=== PATIENT | male | born 1970 | race Caucasian/White ===

== ENCOUNTER 2020-10-30 15:02 | Outpatient (REF) | payer BC, SELFPAY ==
--- NOTE | 2020-10-30 15:23 | XR_ITS ---
EXAMINATION: XR CHEST CLINICAL INFORMATION: Chest pain COMPARISON: None TECHNIQUE: 2 views of the chest were obtained. FINDINGS: No significant abnormality is noted involving the heart, lungs, mediastinum, bony thorax or soft tissues. XR/XR chest 2V IMPRESSION: Unremarkable examination.
[2020-10-30 15:48] LABS: MANUAL DIFF FLAG NO
[2020-10-30 15:54] LABS: Basophils Absolute Auto 0.1 X10*3/uL (0.0-0.2); Basophils Percent Auto 0.7 % (0-2); Eosinophils Absolute Auto 0.1 X10*3/uL (0.0-0.4); Eosinophils Percent Auto 1.7 % (0-4); Imm Gran Abs Auto 0.02 X10*3/uL (0.00-0.03); Imm Gran Pct Auto 0.3 % (0.0-0.4); Lymphocytes Absolute Auto 1.6 X10*3/uL (1.2-4.9); Lymphocytes Percent Auto 22.9 % (20-40); Mean Corpuscular HGB Conc 33.3 g/dl (31.0-36.0); Mean Corpuscular Hemoglobin 30.9 pg (27.0-33.0); Mean Corpuscular Volume 92.6 fL (80-98); Mean Platelet Volume 9.6 fL (9.4-12.4); Monocytes Absolute Auto 0.7 X10*3/uL (0.1-1.2); Monocytes Percent Auto 9.7 % (2-11); Neutrophils Absolute Auto 4.5 X10*3/uL (2.0-8.3); Neutrophils Percent Auto 64.7 % (45-73); Platelet Count 261 X10*3/uL (160-400); Red Blood Count 4.86 X10*6/uL (4.60-5.80); Red Cell Distribution Width 11.6 % (11.0-16.0); White Blood Count 6.9 X10*3/uL (4.8-10.8)
[2020-10-30 16:23] LABS: Troponin-I High Sensitivity < 3.5 ng/L (<3.5-35.0)
[2020-10-30 16:32] LABS: Creatinine Urine 89.67 mg/dL; Microalbum/Creatinine Ratio Ur 7.8 ug/mg cr
[2020-10-30 16:40] LABS: Alanine Aminotransferase 47 U/L (0-40); Albumin Level 4.8 g/dL (3.5-5.0); Alkaline Phosphatase 59 U/L (39-117); Anion Gap 12 (12-20); Aspartate Amino Transferase 31 U/L (5-37); Bilirubin Total 0.7 mg/dL (0.0-1.0); Blood Urea Nitrogen 16 mg/dL (9-16); Calcium 9.2 mg/dL (8.4-10.2); Carbon Dioxide 29 mmol/L (22-29); Chloride 104 mmol/L (96-108); Estimated Glomerular Filt Rate > 60; Glucose Random 100 mg/dL (60-115); Potassium 4.3 mmol/l (3.3-5.1); Sodium 141 mmol/L (135-145); Total Protein 7.3 g/dL (6.5-8.0)
[2020-10-30 16:42] LABS: TSH reflex Free T4 1.88 mIU/mL (0.32-4.0)
== END 2020-10-30 15:03 | disposition home or self-care (01) ==
LOC: HO.LAB 15:02
PROVIDERS: PCP Family Medicine; Visit Provider Family Medicine
DX: Z00.00 Encounter for general adult medical examination without abnormal findings (principal); R07.9 Chest pain, unspecified; I10 Essential (primary) hypertension
CPT/HCPCS: 36415; 71046; 80053; 82043; 84443; 84484; 85025

== ENCOUNTER → 2020-12-11 14:30 | Outpatient (BNVA) | payer BC, SELFPAY | PROVIDERS: PCP Family Medicine; Visit Provider Internal Medicine Cardiovascular Disease ==

== ENCOUNTER → 2020-12-18 09:53 | Outpatient (BNVA) | payer BC, SELFPAY | PROVIDERS: PCP Family Medicine; Visit Provider Internal Medicine Cardiovascular Disease ==

== ENCOUNTER → 2020-12-25 07:40 | Outpatient (REF) | payer BC, SELFPAY ==
--- NOTE | 2020-12-25 07:46 | CA_ITS ---
Transthoracic Echocardiogram Patient (Last, First, Middle): Gus Joaquin, Gender: Male Date of : 1970 Age: 50 Procedure Date: 12/25/2020 Procedure Type: Transthoracic Echocardiogram Location: OP Height: 165.1 cm Weight: 63.5 kg BSA: 1.70 m2 Heart Rate: bpm BP: 132 / 76 mmHg Picking Machine Operator: SANDOVAL Referring MD: Mauri Adams MD Symptoms: I10 - Essential (primary) hypertension Study Quality: Good ECG Rhythm: Sinus Conclusions: - The left ventricular systolic function is normal. The visually estimated ejection fraction is between 55-60%. - No obvious valvular pathology seen on this study. - Interatrial shunt cannot be excluded. Interatrial septum is not well visualized but likely highly mobile. Possible aneurysmal. - If clinically indicated, consider agitated saline contrast study to evaluate for interatrial shunting. Findings Left Ventricle Normal left ventricular cavity size. There is normal left ventricular wall thickness. The left ventricular systolic function is normal. The visually estimated ejection fraction is between 55-60%. There is no evidence of regional wall motion abnormalities. Diastolic function is normal for age. Right Ventricle Normal right ventricular cavity size and systolic function. Atria The left atrium is normal in size. Interatrial shunt cannot be excluded. The right atrium is normal in size. Interatrial septum is not well visualized but likely highly mobile. Possible aneurysmal. Aortic Valve There is a normal trileaflet aortic valve. There is no aortic valve stenosis. There is no aortic valve regurgitation. Mitral Valve The mitral valve appears normal. There is trace mitral valve regurgitation. There is no mitral valve stenosis. Pulmonic Valve The pulmonic valve was not well visualized. Tricuspid Valve Normal tricuspid valve structure. There is trace tricuspid valve regurgitation. The pulmonary artery systolic pressure is normal. Great Vessels The aortic annulus, sinuses of valsalva, asc aorta, and aortic arch are normal in size. Venous The inferior vena cava is normal in size and collapses greater than 50% with inspiration. Pericardium/Pleural There is no evidence of pericardial effusion. Prior Study Comparison No prior study available for comparison. Recommendations, Care & Conclusions No obvious valvular pathology seen on this study. Measurements 2D Linear Measurements IVSd: 0.99 0.6-0.9/0.6-1.0 cm LVIDd: 4.04 3.9-5.3/4.2-5.9 cm LVIDd Index: 2.38 2.4-3.2/2.2-3.1 cm/m2 LVIDs: 2.60 2.0-3.6 cm LVPWd: 0.89 0.7-1.1 cm Ao Root: 2.90 2.1-3.5 cm LA Diam: 3.30 2.7-3.8/3.0-4.0 cm LAIDs Index: 1.94 1.5-2.3 cm/m2 LV Mass: 146.76 67-162/88-224 g LV Mass Index: 86.33 43-95/49-115 g/m2 LVOT Diam: 2.10 3.0+(-)1.3 cm 2D Systolic Function EF 4C: 55.60 >55% EF 2C: 60.60 >55% EF BiP: 58.40 >55% Mitral Valve MV Pk E: 1.07 MV PK A: 0.68 MV Decel Time: 236.00 E/A: 1.60 E'Lateral: 12.30 E'Medial: 8.49 E/E' Med: 12.60 E/E' Lat: 8.70 PHT: 69.00 MVA PHT: 3.19 Decel [place]: 4.51 Aortic Valve AoV Pk Tyson: 1.29 AoV Mn Tyson: 0.87 AoV VTI: 0.29 AoV Pk Grad: 7.00 Aov Mn Grad: 3.00 JUSTINE Cont.VTI: 2.99 LVOT LVOT Pk Tyson: 1.15 LVOT Mn Tyson: 0.71 LVOT VTI: 0.25 LVOT Pk Grad: 5.00 LVOT Mn Grad: 2.00 LVOT Diam: 2.10 LVOT Area: 3.46 Diastolic Function MV Pk E: 1.07 MV Pk A: 0.68 E/A: 1.60 E'Medial: 8.49 E/E' Med: 12.60 E' Laterial: 12.30 E/E' Lat: 8.70 Tricuspid Valve TR Pk Tyson: 1.68 TR Pk Grad: 11.00 RA Press: 3.00 RVSP: 14.00 Great Vessels Aorta Ao Root-2D: 2.90 2.0-3.7 cm Ao Asc: 3.00 2.1-3.4 cm Ao Arch: 2.30 Updated in Other Vendor System with Status of Final Lemuel Garcia MD electronically signed on 12/25/2020 11:29:26 AM with status of Final
== END ==
LOC: HO.CARD 07:40
PROVIDERS: Visit Provider Internal Medicine Cardiovascular Disease
DX: I10 Essential (primary) hypertension (principal)
CPT/HCPCS: 93306

== ENCOUNTER → 2021-02-26 09:51 | Outpatient (BNVA) | payer BC, SELFPAY | PROVIDERS: PCP Family Medicine; Visit Provider Internal Medicine Cardiovascular Disease ==

== ENCOUNTER 2021-03-29 08:07 | Outpatient (REF) | payer BC, SELFPAY ==
[2021-03-29 11:43] LABS: Alanine Aminotransferase 45 U/L (0-40); Albumin Level 4.7 g/dL (3.5-5.0); Alkaline Phosphatase 54 U/L (39-117); Anion Gap 13 (12-20); Aspartate Amino Transferase 31 U/L (5-37); Bilirubin Total 0.9 mg/dL (0.0-1.0); Blood Urea Nitrogen 15 mg/dL (9-16); Calcium 9.5 mg/dL (8.4-10.2); Carbon Dioxide 29 mmol/L (22-29); Chloride 105 mmol/L (96-108); Cholesterol 221 mg/dL; Estimated Glomerular Filt Rate > 60; Glucose Fasting 117 mg/dL (60-99); HDL Cholesterol 81 mg/dL; LDL Cholesterol Calculated 107 mg/dl; Potassium 4.5 mmol/L (3.3-5.1); Sodium 142 mmol/L (135-145); Total Protein 7.3 g/dL (6.5-8.0); Triglycerides 166 mg/dL
[2021-03-29 12:06] LABS: TSH reflex Free T4 2.14 uIU/mL (0.32-4.0)
== END 2021-03-29 08:08 | disposition home or self-care (01) ==
LOC: HO.WFDLDS 08:07
PROVIDERS: Visit Provider Family Medicine
DX: Z00.00 Encounter for general adult medical examination without abnormal findings (principal)
CPT/HCPCS: 36415; 80053; 80061; 84443

== ENCOUNTER 2021-05-10 11:26 | Outpatient (REF) | payer BC, SELFPAY | END 2021-05-10 11:27 | disposition home or self-care (01) | LOC: HO.LNP 11:26 | PROVIDERS: Visit Provider Physician Assistant | DX: J02.9 Acute pharyngitis, unspecified (principal); Z20.822 Contact with and (suspected) exposure to COVID-19 | CPT/HCPCS: U0003; U0005 ==

== ENCOUNTER → 2021-06-04 14:42 | Outpatient (BNVA) | payer BC, SELFPAY | PROVIDERS: PCP Family Medicine; Referring Provider Family Medicine; Visit Provider Internal Medicine Cardiovascular Disease | DX: I10 Essential (primary) hypertension (principal) | CPT/HCPCS: 93005 ==

== ENCOUNTER → 2021-10-01 11:17 | Outpatient (BNVA) | payer BC, SELFPAY | PROVIDERS: PCP Family Medicine; Referring Provider Family Medicine; Visit Provider Nurse Practitioner Family ==

== ENCOUNTER 2022-02-08 08:46 | Day surgery (SDC) | payer BC, SELFPAY ==
--- NOTE | 2022-02-07 12:28 | HO.ANESPROP2 ---
Documented by User: Luzma Cleary NP 02/07/22 12:30 HPI - Anesthesia Eval Consult details Narrative: 52yo M for Colonoscopy Optimized per cardiology ETOH abuse PMFSH Active Problems Active Problems: All Active Problems (Updated 06/26/21 @ 09:40 by Aidan Peoples) Alcohol abuse (Acute) Depression (Acute) Screening for prostate cancer (Acute) History of alcohol abuse (Acute) Screening for colon cancer (Acute) Adult general medical exam (Acute) Anxiety (Acute) Left-sided chest pain (Acute) Laboratory examination ordered as part of a routine general medical examination (Acute) Essential hypertension (Acute) Past Medical History Medical History Essential hypertension Trigger finger, right index finger Family History Family History Father No problems noted. Mother No problems noted. Sister No problems noted. Daughter No problems noted. Surgical History Surgical History S/P tendon repair Social History Social History Housing: House Alcohol intake: current Alcohol intake frequency: 3 or more drinks per day Alcohol type: beer, wine and hard liquor Patient Tobacco Use Status: Never used Tobacco e-Cigarette/Vaping Use: Never Used Second Hand Smoke Exposure: No Advance Directives: No Advance Directives Information Provided: Yes Current occupational status: employed Current occupational exposures/hazards: No Meds Allergies Allergy/AdvReac Type Severity Reaction Status Date / Time Sulfa (Sulfonamide Allergy Mild unknown Verified 12/24/21 09:48 Antibiotics) penicillin G Allergy Unknown unknown Verified 12/24/21 09:48 Home Medications Medication Instructions Recorded Confirmed Last Taken Type flu vac [id number] 36mos up(PF) ml IM 11/06/20 06/04/21 Unknown History Exam Exam Date and Time: February 07, 2022 1228 Pertinent Lab Results Pertinent Lab Results: Laboratory Tests 10/30/20 03/29/21 15:15 08:13 WBC 6.9 Hgb 15.0 Hct 45.0 Plt Count 261 Sodium 142 Potassium 4.5 Chloride 105 Carbon Dioxide 29 BUN 15 Creatinine 0.80 Narrative Narrative: EKG 05/2021 NSR 69/min, normal axis, QTc 413 msec ECHO 12/2020 Conclusions: - The left ventricular systolic function is normal.? The visually estimated ejection fraction is between 55-60%. ? - No obvious valvular pathology seen on this study.? - Interatrial shunt cannot be excluded. Interatrial septum is not well visualized but likely highly mobile.? Possible aneurysmal.? - If clinically indicated, consider agitated saline contrast ? ? study to evaluate for interatrial shunting.? ?? Assessment and Plan Assessment Anesthesia Assessment: Chart Reviewed Documented by User: Zohra Wagnoer MD 02/08/22 09:21 [facility] Past Medical History Medical History Essential hypertension Trigger finger, right index finger Family History Family History Father No problems noted. Mother No problems noted. Sister No problems noted. Daughter No problems noted. Family history of problems with anesthesia: No Surgical History Surgical History S/P tendon repair History of Problems with Anesthesia: No Social History Social History Housing: House Alcohol intake: current Alcohol intake frequency: 3 or more drinks per day Alcohol type: beer, wine and hard liquor Patient Tobacco Use Status: Never used Tobacco e-Cigarette/Vaping Use: Never Used Second Hand Smoke Exposure: No Advance Directives: No Advance Directives Information Provided: Yes Current occupational status: employed Current occupational exposures/hazards: No Meds Allergies Allergy/AdvReac Type Severity Reaction Status Date / Time Sulfa (Sulfonamide Allergy Mild unknown Verified 12/24/21 09:48 Antibiotics) penicillin G Allergy Unknown unknown Verified 12/24/21 09:48 Home Medications Medication Instructions Recorded Confirmed Last Taken Type flu vac [id number] 36mos up(PF) ml IM 11/06/20 06/04/21 Unknown History Exam Airway Mallampati Class: III (Small narrow mouth) TM Dist: >3cm Neck ROM: Full Heart: rrr Lungs: cta Assessment and Plan Assessment Anesthesia Assessment: Anesthesia Plan Discussed and Chart Reviewed Final Anesthetic Review Family History of Problems with Anesthesia: No History of Problems with Anesthesia: No NPO: Yes ASA Class: II Final Preanesthetic Review: No Changes in Pt Med Stat, Meds/Allgs Chart Reviewed and Consent Obtained/Reviewed Patient Risk: Intermediate Procedure Risk: Intermediate Anesthetic Plan Anesthetic Plan: MAC: Disposition: Standard PACU
[2022-02-08 09:12] VITALS: BP 151/89; PULSE 53; RESP 18; TEMP 36.9; O2SAT 98; BMI 24.6
--- NOTE | 2022-02-08 09:24 | MHC.SHP ---
Pre-Procedural Eval Section A Date of Service: 02/08/22 Section B Chief Complaint: abd pain,screening Details of Present Illness: Colon cancer screening Relevant Family History (Specify if Yes): No Relevant Social History: None Present Medications: see Short Stay Collaborative assessment Medical History: Significant History (Essential hypertension Trigger finger, right index finger) History of Previous Operations: Relevant previous surgery/procedure and date(s) (S/P tendon repair) Allergies: Allergies Allergy/AdvReac Type Severity Reaction Status Date / Time Sulfa (Sulfonamide Allergy Mild unknown Verified 12/24/21 09:48 Antibiotics) penicillin G Allergy Unknown unknown Verified 12/24/21 09:48 Review of Systems Sugical H&P ROS: Negative: Constitution, Cardiovascular, Respiratory and Gastrointestinal Exam Surgical H&P Exam: Normal: Heart, Normal: Lungs, Normal: Extremities and Normal: Abdomen Plan Diagnosis/Plan: Unchanged I have reviewed the history and physical and performed a pertinent physical examination on my patient. No changes have occurred unless specified.
[2022-02-08] MEDS: Lactated Ringers 1,000 ML 100 ML IVCONT (09:57)
--- NOTE | 2022-02-08 10:16 | P.BOP_ITS ---
Brief Operative Note Date of Service: 02/08/22 Pre-op diagnosis: Colon cancer screening Post-op diagnosis: other (Colon polyp, diverticulosis, hemorrhoids) Procedure: COLONOSCOPY TILL CECUM WITH SNARE POLYPECTOMY AND SUBMUCOSAL INJECTION Consent: Indications for the procedure and potential complications of bleeding, perforation, reaction to medications and missed diagnosis were discussed with the patient and informed consent was obtained. Instrument: Olympus PCF H 190 L variable stiffness pediatric colonoscope Monitoring: Vital signs and clinical assessment, intermittent blood pressure monitoring, continuous EKG monitoring, Pulse oximetry and Carbon Dioxide monitoring were done throughout the procedure. Colon withdrawl time was 21 minutes. Procedure: The patient was placed in the left lateral decubitis position and pre-procedure medications were administered. After a digital rectal examination of the ano-rectum, the video colonoscope was inserted into the rectum and advanced through the colon to the cecum. The colonoscope was slowly withdrawn in a retrograde panoramic fashion and the colon mucosa was carefully examined including a retroflexed view of the rectum. Findings and interventions are described below. Procedure Difficulty: Without difficulty Findings: Terminal Ileum: Not evaluated Cecum: Normal Ascending Colon: A 1.8 cms flat polyp in proximal AC at 80 cms. Polyp was raised with 3 cc of Orise solution and removed with a hot snare. Hysterectomy site was marked with Ting ink Transverse Colon: Normal Descending Colon: Normal Sigmoid Colon: Moderate diverticulosis Rectum: Normal Ano-rectum: Moderate internal hemorrhoids Colon preparation: Good Impression and Post Procedure Diagnosis: Colonoscopy Findings: One medium sized polyp removed Moderate diverticulosis seen in the sigmoid colon Moderate hemorrhoids on retroflexed exam. Plan: Await pathology results Patient has an appointment on 02/18/22 in the GI Clinic with Alethea Decker FNP- JESSICA . Repeat Colonoscopy interval based on path results - in 2 years if polyps are adenomatous and 10 years if polyps are hyperplastic. Colon polyps and diverticulosis handouts were given in the discharge area Surgeon: Thor Hung MD Anesthesia: MAC (Dr Salomon) and none Was an Loading Unit Operator Seating used for this Procedure?: Yes Loading Unit Operator Seating: Yaneth Guadarrama Estimated blood loss (mL): 0 Pathology: other (A. ASCENDING COLON POLYP at 80CM) Condition: stable Disposition: PACU
[2022-02-08 10:48] VITALS: BP 107/65; PULSE 58; RESP 16; TEMP 36.4; O2SAT 97
--- NOTE | 2022-02-08 10:49 | W.PM.OPN ---
Operative Note Operative Note Date of Service: 02/08/22 Narrative: Pre-op diagnosis: Colon cancer screening Post-op diagnosis:?other (Colon polyp, diverticulosis, hemorrhoids) Procedure: COLONOSCOPY TILL CECUM WITH SNARE POLYPECTOMY AND SUBMUCOSAL INJECTION Consent: Indications for the procedure and potential complications of bleeding, perforation, reaction to medications and missed diagnosis were discussed with the patient and informed consent was obtained. Instrument: Olympus PCF H 190 L variable stiffness pediatric colonoscope Monitoring: Vital signs and clinical assessment, intermittent blood pressure monitoring, continuous EKG monitoring, Pulse oximetry and Carbon Dioxide monitoring were done throughout the procedure. Colon withdrawl time was 21 minutes. Procedure: The patient was placed in the left lateral decubitis position and pre-procedure medications were administered. After a digital rectal examination of the ano-rectum, the video colonoscope was inserted into the rectum and advanced through the colon to the cecum. The colonoscope was slowly withdrawn in a retrograde panoramic fashion and the colon mucosa was carefully examined including a retroflexed view of the rectum. Findings and interventions are described below. Procedure Difficulty: Without difficulty Findings: Terminal Ileum: Not evaluated Cecum:? Normal Ascending Colon:? A 1.8 cms flat polyp in proximal AC at 80 cms.? Polyp was raised with 3 cc of Orise solution and removed with a hot snare.? Hysterectomy site was marked with Ting ink Transverse Colon:? Normal Descending Colon:? Normal Sigmoid Colon:? Moderate diverticulosis Rectum:? Normal Ano-rectum:? Moderate internal hemorrhoids Colon preparation:? Good? Impression and Post Procedure Diagnosis: Colonoscopy Findings: One medium sized polyp removed Moderate diverticulosis seen in the sigmoid colon Moderate hemorrhoids on retroflexed exam. Plan: Await pathology results Patient has an appointment on 02/18/22 in the GI Clinic with Alethea Decker FNP- . Repeat Colonoscopy interval based on path results - in 2 years if polyps are adenomatous and 10 years if polyps are hyperplastic. Colon polyps and diverticulosis handouts were given in the discharge area Surgeon: Thor Hung MD Anesthesia:?MAC (Dr Salomon) and none Was an Funeral Prearrangement Counselor used for this Procedure?:?Yes Funeral Prearrangement Counselor:?Yaneth Guadarrama Estimated blood loss (mL):?0 Pathology:?other (A. ASCENDING COLON POLYP at 80CM) Condition:?stable Disposition:?PACU
[2022-02-08 11:03] VITALS: BP 120/72; PULSE 50; RESP 16; O2SAT 99
[2022-02-08 11:16] VITALS: BP 120/73; PULSE 53; RESP 16; TEMP 36.4; O2SAT 100
== END 2022-02-08 12:25 | disposition home or self-care (01) ==
PROVIDERS: PCP Family Medicine; Visit Provider Internal Medicine Gastroenterology
PROC: 0DJD8ZZ Inspection of Lower Intestinal Tract, Via Natural or Artificial Opening Endoscopic (ICD-10-PCS; CPT 45378; principal; 2022-02-08 10:10)
DX: Z12.11 Encounter for screening for malignant neoplasm of colon (principal); R10.9 Unspecified abdominal pain; K57.30 Diverticulosis of large intestine without perforation or abscess without bleeding; K64.8 Other hemorrhoids; I10 Essential (primary) hypertension; F10.10 Alcohol abuse, uncomplicated; Z79.899 Other long term (current) drug therapy; Z88.0 Allergy status to penicillin; Z88.2 Allergy status to sulfonamides
CPT/HCPCS: 45385; 45381; 88305

== ENCOUNTER 2022-07-01 07:02 | Outpatient (REF) | payer BC, SELFPAY ==
[2022-07-01 11:18] LABS: MANUAL DIFF FLAG NO
[2022-07-01 11:36] LABS: Hematocrit 45.1 % (42.0-52.0); Hemoglobin 15.1 g/dl (14.0-18.0); Mean Corpuscular HGB Conc 33.5 g/dl (31.0-36.0); Mean Corpuscular Hemoglobin 30.4 pg (27.0-33.0); Mean Corpuscular Volume 90.9 fL (80.0-98.0); Red Blood Count 4.96 X10*6/uL (4.60-5.80); Red Cell Distribution Width 11.9 % (11.0-16.0); White Blood Count 5.5 X10*3/uL (4.8-10.8)
[2022-07-01 11:37] LABS: Basophils Absolute Auto 0.1 X10*3/uL (0.0-0.2); Basophils Percent Auto 1.3 % (0-2); Eosinophils Absolute Auto 0.5 X10*3/uL (0.0-0.4); Eosinophils Percent Auto 9.1 % (0-4); Imm Gran Abs Auto 0.02 X10*3/uL (0.00-0.03); Imm Gran Pct Auto 0.4 % (0.0-0.4); Lymphocytes Absolute Auto 2.1 X10*3/uL (1.2-4.9); Lymphocytes Percent Auto 38.7 % (20-40); Monocytes Absolute Auto 0.5 X10*3/uL (0.1-1.2); Monocytes Percent Auto 9.1 % (2-11); Neutrophils Absolute Auto 2.3 x10*3/uL (2.0-8.3); Neutrophils Percent Auto 41.4 % (45-73); Platelet Count 257 X10*3/uL (160-400)
[2022-07-01 11:58] LABS: Alanine Aminotransferase 27 U/L (0-40); Albumin Level 4.5 g/dL (3.5-5.0); Alkaline Phosphatase 55 U/L (39-117); Anion Gap 14 (12-20); Aspartate Amino Transferase 21 U/L (5-37); Bilirubin Total 0.9 mg/dL (0.0-1.0); Blood Urea Nitrogen 12 mg/dL (9-16); Carbon Dioxide 28 mmol/L (22-29); Chloride 106 mmol/L (96-108); Cholesterol 215 mg/dL; Estimated Glomerular Filt Rate > 60; Glucose Fasting 135 mg/dL (60-99); HDL Cholesterol 77 mg/dL; LDL Cholesterol Calculated 125 mg/dl; Potassium 4.6 mmol/L (3.3-5.1); Sodium 143 mmol/L (135-145); Triglycerides 69 mg/dL
[2022-07-01 12:47] LABS: Creatinine Urine 105.19 mg/dL; Microalbum/Creatinine Ratio Ur 5.7 ug/mg cr
== END 2022-07-01 07:03 | disposition home or self-care (01) ==
LOC: HO.WFDLDS 07:02
PROVIDERS: Visit Provider Family Medicine
DX: Z00.00 Encounter for general adult medical examination without abnormal findings (principal); I10 Essential (primary) hypertension
CPT/HCPCS: 36415; 80053; 80061; 82043; 84443; 85025

== ENCOUNTER 2022-09-09 09:35 | Outpatient (REF) | payer BC, SELFPAY ==
[2022-09-09 12:37] LABS: Prostate Specific Antigen Scr 0.99 ng/mL (<0.05-4.0)
== END 2022-09-09 09:36 | disposition home or self-care (01) ==
LOC: HO.WFDLDS 09:35
PROVIDERS: Visit Provider Family Medicine
DX: Z12.5 Encounter for screening for malignant neoplasm of prostate (principal)
CPT/HCPCS: 36415; 84153

== ENCOUNTER 2023-07-28 08:51 | Outpatient (AMB) | payer BC, SELFPAY ==
[2023-07-28 09:03] VITALS: BP 130/66; PULSE 71; O2SAT 97; BMI 24.3
--- NOTE | 2023-07-28 09:03 | MHC.PC.OV ---
Vital Signs 07/28/23 09:03 Height 5 ft 5 in Weight 146 lb BMI 24.3 BP 130/66 Blood Pressure Location Lt brachial Position Sitting Pulse 71 Pulse Source Pulse Oximeter Pulse Oximetry (%) 97 Oxygen Delivery Method Room Air Intake Visit Reasons: CPE with f/u labs and health maintenance Intake Note: Patient is here for his physical, and and is cocerned of rash on right leg. Allergies Sulfa (Sulfonamide Antibiotics) Allergy (Mild, Verified 07/28/23 09:06) unknown penicillin G Allergy (Unknown, Verified 07/28/23 09:06) unknown Tobacco use date assessed: 07/28/23 Dental Screening Dental Screen Date: 07/28/23 Did you have a dental visit in the last 12 months?: Yes Did you have a dental problem in the last 6 months where you did not have access to dental care?: No Was dental information given to patient?: Patient has dentist HPI CPE with f/u labs and health maintenance HPI Details 53 y/o male presents for a CPE with f/u labs and health maintenance. No recent labs to review. BP today 130/66. He is on amlodipine 5mg b.i.d. and carvedilol 6.25mg b.i.d. Pt has complaints of a rash on his thighs. Pt reports he had also found a tick on his back less than a week ago on . Today is Friday. [facility] Medical History Essential hypertension Trigger finger, right index finger Surgical History Hx of colonoscopy S/P tendon repair Family History Father No problems noted. Mother No problems noted. Sister No problems noted. Daughter No problems noted. 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 Percy Lombardi, Jenniffer Capps, Omar Cunningham and colleagues, with an educational dana from [email or web address]. Review of Systems Const Denies chills, Denies fatigue, Denies fever(s), Denies headache(s) and Denies weakness Eyes Denies change in vision ENT Denies dizziness, Denies headache(s), Denies hearing loss, Denies nasal congestion, Denies sinus pain, Denies sinus pressure and Denies sore throat Card Denies chest pain, Denies lightheadedness, Denies dyspnea and Denies other (palpitations) Resp Denies cough, Denies dyspnea and Denies wheezing GI Denies abdominal pain, Denies melena, Denies hematochezia, Denies change in bowel habits, Denies dyspepsia and Denies nausea Denies hematuria and Denies dysuria Musc Denies abnormal gait, Denies myalgias, Denies arthralgias, Denies numbness and Denies tingling Skin/Breast Reports rash Neuro Denies abnormal gait, Denies dizziness, Denies headache(s), Denies memory loss, Denies numbness, Denies Sensory deficit (Neuro), Denies tingling and Denies weakness Psych Denies anxiety, Denies depression and Denies memory loss Endo Denies cold intolerance, Denies fatigue, Denies heat intolerance, Denies polydipsia and Denies polyuria Lit/Lymph Denies easy bleeding and Denies easy bruising Aller/Immun Denies wheezing Physical exam (Primary Care) Vital Signs: Last Vital Signs Pulse 71 07/28/23 09:03 BP 130/66 07/28/23 09:03 Pulse Ox 97 07/28/23 09:03 Oxygen Delivery Method Room Air 07/28/23 09:03 BMI result Body Mass Index 24.3 Tobacco/Smoking Status: Tobacco use Status Tobacco use date assessed 07/28/23 07/28/23 09:08 Patient Tobacco Use Status Never used Tobacco 07/28/23 09:08 e-Cigarette/Vaping Use Never Used 07/28/23 09:08 Thrive Assessment: Date of Thrive Assessment Date Thrive assessed 01/23/23 07/28/23 09:08 Const General: no acute distress, well developed, alert and awake Nutritional Appearance: well nourished Orientation/consciousness: patient oriented x3 HENMT Head: Yes normocephalic and Yes atraumatic Ears: hearing grossly normal bilaterally and TM's normal bilaterally General nose exam: Normal external nose present and Normal nares present Mouth: Normal oral and palatal mucosa present and moist mucous membranes Teeth and gingiva: dentition normal Throat: Yes posterior oropharynx normal Eyes General: appearance normal, both eyes and all related structures Pupils: Equal, round and reactive pupils present and Pupil accommodation reflex normal EOM: EOMs intact bilaterally Neck Neck: Yes normal visual inspection, Yes no lymphadenopathy and Yes trachea midline Thyroid: Thyroid normal Carotids: no bruits Lymphatic: no lymphadenopathy noted Chest Chest palpation & inspection: normal inspection of the chest Resp Effort & Inspection: normal respiratory effort Auscultation: clear to auscultation bilaterally Cardio Rate: regular rate Rhythm: regular rhythm Heart sounds: S1 normal heart sound present, S2 normal heart sound present, no gallops, no murmurs and no rubs Bruits: no abdominal aortic bruits and no carotid bruits GI Palpation (GI): No Abdominal aortic bruit present, Soft to palpation, nontender, No hepatosplenomegaly present and No Rebound tenderness present Auscultation: normal bowel sounds General: Yes no CVA tenderness Back/Spine/Pelvis Back: no CVA tenderness Cervical Spine: cervical ROM normal and No Cervical spine tenderness Thoracic/Lumbar Spine: thoraco-lumbar ROM normal, No pain with thoraco-lumbar ROM, No thoracic spinal tenderness and No lumbar spinal tenderness Skin Lesions: no lesions Rashes: no rashes Trauma: no lacerations or abrasions Wounds: no wounds Nails: normal Neuro General: patient oriented x3 Cranial nerves: Yes Equal, round and reactive pupils present Cognition (Neuro): normal cognition Gait exam (Neuro): Normal gait present Motor exam (neuro): 5/5 motor strength present throughout Sensory Exam: No Sensory deficit (Neuro) Deep tendon reflexes (DTR's): Right patellar reflex intensity grade: 2+ and Left patellar reflex intensity grade: 2+ Extrem General: Yes normal to inspection and No edema Psych Appearance: grossly normal Affect: normal affect Attitude: cooperative Thought process: Normal thought process present Assessment and Plan Assessment & Plan (1) Adult general medical exam: Code(s): Z00.00 - Encounter for general adult medical examination without abnormal findings Plan: 53-year-old?male?presents?for?complete?physical?exam Encouraged?healthy?diet?with?active?lifestyle?and?plenty?of?exercise (2) Tick bite: Code(s): W57.XXXA - Bitten or stung by nonvenomous insect and other nonvenomous arthropods, initial encounter Plan: Tick?bite?with?local?reaction?on?his?back. No?erythema?migrans?rash Patient?is?uncertain?how?long?tick?was?attached?though?it?is?no?longer?attached. Will?give?him?a?prophylactic?dose?of?doxycycline?and?check?Lyme?titers?in?1?week. (3) Rash: Code(s): R21 - Rash and other nonspecific skin eruption Plan: Half?dollar?sized?rash?on?right?lateral?thigh Appears?to?be?a?contact?dermatitis?and?not?similar?to?an?erythema?migrans?rash. (4) Essential hypertension: Code(s): I10 - Essential (primary) hypertension Plan: Blood?pressure?is?controlled.??Goal?is?less?than?140/90 Continue?current?medication?regimen (5) Screening for colon cancer: Code(s): Z12.11 - Encounter for screening for malignant neoplasm of colon Plan: Recent?colonoscopy?showed?a?polyp?and?recommended?follow-up?which?he?is?scheduled?for?next?spring Follow-up?with?GI?as?recommended (6) Screening for prostate cancer: Code(s): Z12.5 - Encounter for screening for malignant neoplasm of prostate Plan: Check?PSA Orders: Orders Lipid Panel Today Z00.00 - Encounter for general adult medical examination without abnormal findings Microalbumin, Random (w Creat) Today I10 - Essential (primary) hypertension UA and rflx microscopic Today Z00.00 - Encounter for general adult medical examination without abnormal findings Lyme IgG/IgM w/reflex to WB Today W57.XXXA - Bitten or stung by nonvenomous insect and other nonvenomous arthropods, initial encounter Comprehensive [place]. Panel Fast Today Z00.00 - Encounter for general adult medical examination without abnormal findings TSH reflex Free T4 Today Z00.00 - Encounter for general adult medical examination without abnormal findings Prostate Specific Antigen Scr Today Z12.5 - Encounter for screening for malignant neoplasm of prostate Medications: New doxycycline hyclate 200 mg (2 x 100 mg) PO ONCE 1 day 2 caps 0RF W57.XXXA - Bitten or stung by nonvenomous insect and other nonvenomous arthropods, initial encounter Coding Level of Care Code Est Pt Level 3 (36135) Est Pt Prev Care 40-64y(87453) Diagnoses Adult general medical exam Z00.00 Tick bite W57.XXXA Rash R21 Essential hypertension I10 Screening for colon cancer Z12.11 Screening for prostate cancer Z12.5
== END 2023-07-28 09:53 | disposition home or self-care (01) ==
PROVIDERS: PCP Family Medicine; Visit Provider Family Medicine
DX: Z00.00 Encounter for general adult medical examination without abnormal findings (principal); T63.481A Toxic effect of venom of other arthropod, accidental (unintentional), initial encounter; R21 Rash and other nonspecific skin eruption; I10 Essential (primary) hypertension
CPT/HCPCS: 99213; 99396

== ENCOUNTER 2023-07-29 07:04 | Outpatient (REF) | payer BC, SELFPAY ==
[2023-07-29 11:25] LABS: Appearance Urine Clear; Color Urine Yellow; Glucose Urine UA Negative (Negative); Leukocyte Esterase Urine Negative (Negative); Nitrite Urine Negative (Negative); PH 7.5 (5.0-9.0); Specific Gravity - Urine 1.015 (1.005-1.025); Urine Blood Negative (Negative); Urine Ketones Negative (Negative); Urine Protein Negative (Neg-Trace)
[2023-07-29 11:52] LABS: Alanine Aminotransferase 28 U/L (0-40); Albumin Level 4.5 g/dL (3.5-5.0); Alkaline Phosphatase 56 U/L (39-117); Anion Gap 13 (12-20); Aspartate Amino Transferase 22 U/L (5-37); Bilirubin Total 0.8 mg/dL (0.0-1.0); Blood Urea Nitrogen 13 mg/dL (9-16); Calcium 9.7 mg/dL (8.4-10.2); Carbon Dioxide 27 mmol/L (22-29); Chloride 106 mmol/L (96-108); Cholesterol 216 mg/dL (<200); Estimated Glomerular Filt Rate > 60; Glucose Fasting 130 mg/dL (60-99); HDL Cholesterol 79 mg/dL (>40); LDL Cholesterol Calculated 113 mg/dL (<100); Potassium 4.3 mmol/L (3.3-5.1); Sodium 142 mmol/L (135-145); Total Protein 7.6 g/dL (6.5-8.0); Triglycerides 122 mg/dL (<150)
[2023-07-29 12:04] LABS: Prostate Specific Antigen Scr 0.73 ng/mL (<0.05-4.0)
[2023-07-29 12:15] LABS: TSH reflex Free T4 3.44 uIU/mL (0.32-4.0)
[2023-07-29 12:49] LABS: Microalbum/Creatinine Ratio Ur 16.2 ug/mg cr (<30)
[2023-08-01 18:39] LABS: Lyme Abs Screen <0.90 index
== END 2023-07-29 07:05 | disposition home or self-care (01) ==
LOC: HO.WFDLDS 07:04
PROVIDERS: Visit Provider Family Medicine
DX: Z00.00 Encounter for general adult medical examination without abnormal findings (principal); Z12.5 Encounter for screening for malignant neoplasm of prostate; T14.8XXA Other injury of unspecified body region, initial encounter; W57.XXXA Bitten or stung by nonvenomous insect and other nonvenomous arthropods, initial encounter; I10 Essential (primary) hypertension
CPT/HCPCS: 36415; 80053; 80061; 81003; 82043; 82570; 84153; 84443; 86617; 86618

== ENCOUNTER 2024-03-15 06:57 | Day surgery (SDC) | payer BC, SELFPAY ==
[2024-03-15 07:43] VITALS: BP 168/96; PULSE 62; RESP 16; TEMP 36.3; O2SAT 99; BMI 23.5
[2024-03-15] MEDS: Lactated Ringers 1,000 ML 100 ML IVCONT (07:55)
--- NOTE | 2024-03-15 08:35 | MHC.SHP ---
Pre-Procedural Eval Section A - 24 Hr Update-Section A only Date of Service: 03/15/24 The patient is an INPATIENT: No The patient has been examined within 24 hours of the surgical procedure. The History & Physical has been completed within 30 days and I have reviewed it.: No Section B - Complete if H&P > 30 days Chief Complaint: Surveillance for colon polyps Relevant Family History (Specify if Yes): No Relevant Social History: None Present Medications: see Short Stay Collaborative assessment Medical History: Significant History (Essential hypertension Trigger finger, right index finger) History of Previous Operations: Relevant previous surgery/procedure and date(s) (Hx of colonoscopy S/P tendon repair) Allergies: Allergies Allergy/AdvReac Type Severity Reaction Status Date / Time Sulfa (Sulfonamide Allergy Mild unknown Verified 10/27/23 13:44 Antibiotics) penicillin G Allergy Unknown unknown Verified 10/27/23 13:44 Review of Systems Sugical H&P ROS: Negative: Constitution, Cardiovascular, Respiratory and Gastrointestinal Exam Surgical H&P Exam: Normal: Heart, Normal: Lungs, Normal: Extremities and Normal: Abdomen Plan Diagnosis/Plan: Unchanged I have reviewed the history and physical and performed a pertinent physical examination on my patient. No changes have occurred unless specified. Time Spent With Patient Time: Total time managing care of this patient today ____ minutes.
--- NOTE | 2024-03-15 09:23 | P.CONAN_ITS ---
[facility] Active Problems Active Problems: All Active Problems Tick bite (Acute) Rash (Acute) Dermatitis (Acute) Paresthesia of hand, bilateral (Acute) Abdominal pain (Acute) Elevated fasting glucose (Acute) Alcohol abuse (Acute) Depression (Acute) Screening for prostate cancer (Acute) History of alcohol abuse (Acute) Screening for colon cancer (Acute) Adult general medical exam (Acute) Anxiety (Acute) Left-sided chest pain (Acute) Laboratory examination ordered as part of a routine general medical examination (Acute) Essential hypertension (Acute) Past Medical History Medical History (Updated 03/11/24 @ 10:05 by Sammie Cronin RN) Alcohol abuse Essential hypertension Family History Family History Father No problems noted. Mother No problems noted. Sister No problems noted. Daughter No problems noted. Family history of problems with anesthesia: No Surgical History Surgical History Hx of colonoscopy S/P tendon repair History of Problems with Anesthesia: No Social History Social History Housing: House Alcohol intake: current Alcohol intake frequency: 3 or more drinks per day Alcohol type: beer, wine and hard liquor Patient Tobacco Use Status: Never used Tobacco e-Cigarette/Vaping Use: Never Used Second Hand Smoke Exposure: No Use of substances other than those prescribed or required for medical reasons: No Are you DNR?: No Advance Directives: No Advance Directives Information Provided: Yes service: No Current occupational status: employed 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 Current occupational exposures/hazards: No Cognitive needs: No Hearing needs: No Vision needs: No Meds Allergies Allergy/AdvReac Type Severity Reaction Status Date / Time Sulfa (Sulfonamide Allergy Mild unknown Verified 10/27/23 13:44 Antibiotics) penicillin G Allergy Unknown unknown Verified 10/27/23 13:44 Active Medications: Current Medications Lactated Ringer's (Lr) 1,000 mls @ 100 mls/hr IVCONT .Q10H XAVIER Last Admin: 03/15/24 07:55 Dose: 100 mls/hr Exam Height,Weight and Vital Signs: Height 5 ft 5 in Weight 64.047 kg Last Vital Signs Temp 97.3 F 03/15/24 07:43 Pulse 62 06/10/24 07:43 Resp 16 03/15/24 07:43 BP 168/96 H 03/15/24 07:43 Pulse Ox 99 03/15/24 07:43 O2 Del Method Room Air 03/15/24 07:43 Airway Mallampati Class: II TM Dist: >3cm Neck ROM: Full Heart: rrr Lungs: cta Assessment and Plan Assessment Anesthesia Assessment: Anesthesia Plan Discussed and Chart Reviewed Final Anesthetic Review Family History of Problems with Anesthesia: No History of Problems with Anesthesia: No NPO: Yes ASA Class: II Final Preanesthetic Review: No Changes in Pt Med Stat, Meds/Allgs Chart Reviewed and Consent Obtained/Reviewed Patient Risk: Low Procedure Risk: Low Anesthetic Plan Anesthetic Plan: MAC: Disposition: Standard PACU
--- NOTE | 2024-03-15 09:58 | HO.OPN-COLON ---
Colonoscopy Operative Note Operative Note Date of Service: 03/15/24 Narrative: COLONOSCOPY TILL CECUM WITH SNARE POLYPECTOMY Pre-op diagnosis: Surveillance for colon polyps. Post-op diagnosis:? Colon polyp, Diverticulosis, hemorrhoids Endoscopist:? Thor Hung MD Anesthesia:?MAC Consent: Indications for the procedure and potential complications of bleeding, perforation, reaction to medications and missed diagnosis were discussed with the patient and informed consent was obtained. Instrument: Olympus PCF H 190 L variable stiffness pediatric colonoscope Monitoring: Vital signs and clinical assessment, intermittent blood pressure monitoring, continuous EKG monitoring, Pulse oximetry and Carbon Dioxide monitoring were done throughout the procedure. Please see anesthesia flowsheet. Colon withdrawl time was 12 minutes. Procedure: The patient was placed in the left lateral decubitis position and pre-procedure medications were administered. After a digital rectal examination of the ano-rectum, the video colonoscope was inserted into the rectum and advanced through the colon to the cecum. The colonoscope was slowly withdrawn in a retrograde panoramic fashion and the colon mucosa was carefully examined including a retroflexed view of the rectum. Findings and interventions are described below. Procedure Difficulty: without difficulty Findings: Terminal Ileum: Not evaluated Cecum: Normal Ascending Colon: Polypectomy site visualized at 80 cms and no residual/recurrent polyp noted Moderate scattered diverticulosis Transverse Colon: Normal Descending Colon: Normal Sigmoid Colon: A 3-4 mm diminutive appearing polyp - removed with a cold snare. Moderate diverticulosis Rectum: Normal Ano-rectum: Large non-bleeding internal hemorrhoids Colon preparation: Good after some irrigation. [place] Bowel Preparation Scale Right colon; 2 Transverse colon: 2 Left colon; 3 (0 = Unprepared colon segment with mucosa not seen due to solid stool that cannot be cleared. 1 = Portion of mucosa of the colon segment seen, but other areas of the colon segment not well seen due to staining, residual stool and/or opaque liquid. 2 = Minor amount of residual staining, small fragments of stool and/or opaque liquid, but mucosa of colon segment seen well. 3 = Entire mucosa of colon segment seen well with no residual staining, small fragments of stool or opaque liquid) Impression and Post Procedure Diagnosis: Colonoscopy Findings: One small polyp was removed Moderate diverticulosis seen in the sigmoid and right colon Large hemorrhoids on retroflexed exam. Plan: I will send a letter with pathology results Repeat Colonoscopy in 5 years if polyp is adenomatous and due to a history of adenomatous colon polyps. Above findings were reviewed with the patient and relevant handouts were given and the discharge area.
[2024-03-15 09:59] VITALS: BP 109/74; PULSE 59; RESP 16; TEMP 36.1; O2SAT 98
[2024-03-15 10:14] VITALS: BP 135/85; PULSE 53; RESP 16; TEMP 36.1; O2SAT 100
== END 2024-03-15 10:56 | disposition home or self-care (01) ==
PROVIDERS: PCP Family Medicine; Visit Provider Internal Medicine Gastroenterology
PROC: 0DJD8ZZ Inspection of Lower Intestinal Tract, Via Natural or Artificial Opening Endoscopic (ICD-10-PCS; CPT 45378; principal; 2024-03-15 09:20)
DX: Z12.11 Encounter for screening for malignant neoplasm of colon (principal); K63.5 Polyp of colon; K57.30 Diverticulosis of large intestine without perforation or abscess without bleeding; K64.8 Other hemorrhoids; Z86.010 Personal history of colon polyps; I10 Essential (primary) hypertension
CPT/HCPCS: 45385; 88305; J2704

== ENCOUNTER → 2024-03-15 06:57 | Outpatient (BNV) | payer BC, SELFPAY | PROVIDERS: PCP Family Medicine; Visit Provider Internal Medicine Gastroenterology | DX: Z12.11 Encounter for screening for malignant neoplasm of colon (principal); Z86.010 Personal history of colon polyps; K63.5 Polyp of colon; K57.90 Diverticulosis of intestine, part unspecified, without perforation or abscess without bleeding; K64.8 Other hemorrhoids | CPT/HCPCS: 45385 ==

== ENCOUNTER 2024-03-29 14:30 | Outpatient (AMB) | payer BC, SELFPAY ==
[2024-03-29 14:35] VITALS: BP 132/72; PULSE 71; O2SAT 97; BMI 23.8
--- NOTE | 2024-03-29 14:35 | A.OFFPC_ITS ---
Vital Signs 03/29/24 14:35 Height 5 ft 5 in Weight 143 lb BMI 23.8 BP 132/72 Blood Pressure Location Lt brachial Position Sitting Pulse 71 Pulse Source Pulse Oximeter Pulse Oximetry (%) 97 Oxygen Delivery Method Room Air Intake Visit Reasons: f/u hypertension and elevated fbs Intake Note: Patient is here for follow up on hypertension and fasting blood sugars Allergies Sulfa (Sulfonamide Antibiotics) Allergy (Mild, Verified 03/29/24 14:39) unknown penicillin G Allergy (Unknown, Verified 03/29/24 14:39) unknown Medication List - Last Reconciled 03/29/24 by Claudio Sigala MD amlodipine 5 mg PO BID 90 days carvedilol 6.25 mg PO BID 90 days triamcinolone acetonide 0.1% 1 appl topical BID 7 days Tobacco use date assessed: 10/27/23 Dental Screening Dental Screen Date: 03/29/24 Did you have a dental visit in the last 12 months?: Yes Did you have a dental problem in the last 6 months where you did not have access to dental care?: No Was dental information given to patient?: Patient has dentist HPI f/u hypertension and elevated fbs HPI Details 54 y/o male presents to f/u hypertension and elevated fasting blood sugars. Blood pressure today 132/72. He is on amlodipine 5mg b.i.d, carvedilol 6.25mg b.i.d. A1c today 03/29/24 5.6%. Pt notes he had a recent colonoscopy about a week ago. HPI Comments History of Present Illness Details Documentation assistance for Claudio Sigala MD, was provided by Aidan Peoples, Data Manager on 03/29/2024 at 3:00 PM EST. I, Dr. Sigala, have read, observed, and verified documentation. [facility] Medical History (Updated 03/11/24 @ 10:05 by Sammie Cronin RN) Alcohol abuse Essential hypertension Surgical History Hx of colonoscopy S/P tendon repair Family History Father No problems noted. Mother No problems noted. Sister No problems noted. Daughter No problems noted. 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 Percy Lombardi, Jenniffer Capps, Omar Cunningham and colleagues, with an educational dana from [employer]. Review of Systems Const Denies chills, Denies fatigue, Denies fever(s), Denies headache(s) and Denies weakness ENT Denies dizziness and Denies headache(s) Card Denies dyspnea Resp Denies cough, Denies dyspnea, Denies wheezing and Denies other (shortness of breath) Musc Denies numbness and Denies tingling Neuro Denies dizziness, Denies headache(s), Denies numbness, Denies tingling and Denies weakness Psych Denies anxiety and Denies depression Endo Denies fatigue Aller/Immun Denies wheezing Physical exam (Primary Care) Vital Signs: Last Vital Signs Pulse 71 03/29/24 14:35 BP 132/72 03/29/24 14:35 Pulse Ox 97 03/29/24 14:35 Oxygen Delivery Method Room Air 03/29/24 14:35 BMI result Body Mass Index 23.8 Tobacco/Smoking Status: Tobacco use Status Tobacco use date assessed 10/27/23 03/29/24 14:36 Patient Tobacco Use Status Never used Tobacco 03/29/24 14:36 e-Cigarette/Vaping Use Never Used 03/29/24 14:36 Thrive Assessment: Date of Thrive Assessment Date Thrive assessed 01/23/23 03/29/24 14:36 Const General: well developed; No acute distress Nutritional Appearance: well nourished Orientation/consciousness: patient oriented x3 HENMT Head: Yes normocephalic and Yes atraumatic Eyes General: appearance normal, both eyes and all related structures Pupils: Equal, round and reactive pupils present EOM: EOMs intact bilaterally Resp Effort & Inspection: normal respiratory effort Neuro General: patient oriented x3 and gait normal Cranial nerves: Yes Equal, round and reactive pupils present Psych Affect: normal affect Results AMB Hemoglobin A1c AMB Hemoglobin A1c 5.6 % Last Edit by Christine Rushing CMA on 03/29/24 14:54 Results Reviewed Results Reviewed: Laboratory Last Values Hgb A1c (Clinic) 5.6 % (4.0-6.0) 03/29/24 14:50 Assessment and Plan Assessment & Plan (1) Essential hypertension: Code(s): I10 - Essential (primary) hypertension Plan: Blood?pressure?is?controlled.??Goal?is?less?than?140/90 Continue?current?medications (2) Elevated fasting glucose: Code(s): R73.01 - Impaired fasting glucose Plan: A1c?5.6%;?top?normal?range Encouraged?a?diet?lower?in?sugars?and?starches Encouraged?weight?control?and?exercise (3) Screening for colon cancer: Code(s): Z12.11 - Encounter for screening for malignant neoplasm of colon Plan: Recent?colonoscopy?with?hyperplastic?polyp?and?he?was?told?to?follow- up?in?5?years Follow-up?with?GI?as?recommended Orders: Orders AMB Hemoglobin A1c Today Z13.9 - Encounter for screening, unspecified Comprehensive [place]. Panel Fast Today Z00.00 - Encounter for general adult medical examination without abnormal findings Lipid Panel Today Z00.00 - Encounter for general adult medical examination without abnormal findings UA and rflx microscopic Today Z00.00 - Encounter for general adult medical examination without abnormal findings Microalbumin, Random (w Creat) Today I10 - Essential (primary) hypertension Prostate Specific Antigen Scr Today Z12.5 - Encounter for screening for malignant neoplasm of prostate TSH reflex Free T4 Today Z00.00 - Encounter for general adult medical examination without abnormal findings Medications: Refilled amlodipine 5 mg PO BID 90 days 180 tabs 3RF carvedilol 6.25 mg PO BID 90 days 180 tabs 3RF Coding Level of Care Code Est Pt Level 3 (13331) Diagnoses Essential hypertension I10 Elevated fasting glucose R73.01 Screening for colon cancer Z12.11
== END 2024-03-29 15:13 | disposition home or self-care (01) ==
PROVIDERS: PCP Family Medicine; Visit Provider Family Medicine
DX: I10 Essential (primary) hypertension (principal); R73.01 Impaired fasting glucose; Z12.11 Encounter for screening for malignant neoplasm of colon
CPT/HCPCS: 83036; 99213

== ENCOUNTER 2024-07-12 08:06 | Outpatient (REF) | payer BC, SELFPAY ==
[2024-07-12 11:26] LABS: Appearance Urine Clear; Color Urine Yellow; Glucose Urine UA Negative (Negative); Leukocyte Esterase Urine Negative (Negative); Nitrite Urine Negative (Negative); Specific Gravity - Urine 1.025 (1.005-1.025); Urine Blood Negative (Negative); Urine Ketones Negative (Negative); Urine Protein Negative (Neg-Trace)
[2024-07-12 11:59] LABS: Creatinine Urine 140.27 mg/dL; Microalbum/Creatinine Ratio Ur 4.9 ug/mg cr (<30)
[2024-07-12 12:04] LABS: Alanine Aminotransferase 25 U/L (0-40); Albumin Level 4.6 g/dL (3.5-5.0); Alkaline Phosphatase 51 U/L (39-117); Anion Gap 13 (12-20); Aspartate Amino Transferase 22 U/L (5-37); Blood Urea Nitrogen 15 mg/dL (9-16); Calcium 9.8 mg/dL (8.4-10.2); Carbon Dioxide 28 mmol/L (22-29); Chloride 106 mmol/L (96-108); Estimated Glomerular Filt Rate > 60; Glucose Fasting 116 mg/dL (60-99); Potassium 4.2 mmol/L (3.3-5.1); Sodium 143 mmol/L (135-145); TSH reflex Free T4 2.41 uIU/mL (0.32-4.0); Total Protein 7.6 g/dL (6.5-8.0)
[2024-07-12 12:19] LABS: Prostate Specific Antigen Scr 1.55 ng/mL (<0.05-4.0)
== END 2024-07-12 08:07 | disposition home or self-care (01) ==
LOC: HO.WFDLDS 08:06
PROVIDERS: Visit Provider Family Medicine
DX: Z00.00 Encounter for general adult medical examination without abnormal findings (principal); I10 Essential (primary) hypertension; Z12.5 Encounter for screening for malignant neoplasm of prostate
CPT/HCPCS: 36415; 80053; 81003; 82043; 82570; 84153; 84443

== ENCOUNTER 2025-01-06 15:49 | Outpatient (AMB) | payer BC, SELFPAY ==
--- NOTE | 2025-01-06 16:04 | MHC.PC.OV ---
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 He reports symptoms x5 weeks. Blood pressure today 130/78, 78p. He is on amlodipine 5mg b.i.d, carvedilol 6.25mg b.i.d. Hx of elevated fasting glucose. A1c today 5.5%. He notes he keeps working on decreasing EtOH use. [facility] Medical History (Updated 01/06/25 @ 16:52 by Aidan Peoples) Alcohol abuse Essential hypertension Surgical History Hx of colonoscopy S/P tendon repair Family History Father No problems noted. Mother No problems noted. Sister No problems noted. Daughter No problems noted. 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 1. Little interest or pleasure in doing things: not at all 2. Feeling down, depressed, or hopeless: not at all 3. Trouble falling or staying asleep, or sleeping too much: several days 4. Feeling tired or having little energy: several days 5. Poor appetite or overeating: not at all 6. Feeling bad about yourself - or that you are a failure or have let yourself or your family down: not at all 7. Trouble concentrating on things, such as reading the newspaper or watching television: not at all 8. Moving or speaking so slowly that other people could have noticed. Or the opposite - being so fidgety or restless that you have been moving around a lot more than usual: not at all 9. Thoughts that you would be better off or of hurting yourself in some way: not at all Total score: 2 Source: Developed by Drs. Percy Lombardi, Jenniffer Capps, Omar Cunningham and colleagues, with an educational dana from [employer]. Thrive Questionnaire Date Thrive assessed: 01/23/23 I am a: Patient What is your living situation today?: I have a steady place to live Within the past 12 months, did the food you bought not last and you didn't have the money to get more?: Never true Within the past 12 months, did you worry whether your food would run out before you got money to buy more?: Never true Do you have trouble paying for medicines?: No Do you have trouble getting transportation to medical appointments?: No Do you have trouble paying your heating and electricity bill?: No Do you have trouble taking care of your child, family member or friend?: No Do you have trouble with day-to-day activities such as bathing, preparing meals, shopping, managing finances, etc.?: No Are you currently unemployed and looking for a job?: No Are you interested in more education?: No Please select the resources that you would like help with: None Currently or been in a relationship where the following occur: No concerns reported THRIVE Score: 0 AUDIT C Alcohol Use Questionnaire (AUDIT-C) 1. How often do you have a drink containing alcohol?: 4 or more times a week 2. How many drinks containing alcohol do you have on a typical day when you are drinking?: 3 or 4 3. How often do you have six or more drinks on one occasion?: Less than monthly Total Score: 6 DEVIKA-7 AMB Questionnaire DEVIKA-7 Date DEVIKA - 7 assessed: 01/23/23 Feeling nervous, anxious, or on edge: 0 = Not at all Not being able to stop or control worryin = Not at all Worrying too much about different things: 1 = Several days Trouble relaxin = Not at all Being so restless that it is hard to sit still: 0 = Not at all Becoming easily annoyed or irritable: 1 = Several days Feeling afraid as if something awful might happen: 1 = Several days Total DEVIKA-7 score (0-4 normal; 5-9 mild; 10-14 moderate; 15-21 severe): 3 Source: Developed by Drs. Percy Lombardi, Jenniffer Capps, Omar Cunningham and colleagues, with an educational dana from [employer]. Review of Systems Const Denies chills, Denies fatigue, Denies fever(s), Denies headache(s) and Denies weakness ENT Denies dizziness and Denies headache(s) Card Denies chest pain, Denies lightheadedness, Denies dyspnea and Denies other (Palpitations) Resp Denies cough, Denies dyspnea, Denies wheezing and Denies other ( shortness of breath) Musc Denies numbness and Denies tingling Neuro Denies dizziness, Denies headache(s), Denies numbness, Denies tingling, Denies paresthesias and Denies weakness Psych Denies anxiety and Denies depression Endo Denies fatigue Aller/Immun Denies wheezing Physical exam (Primary Care) Vital Signs: Last Vital Signs Temp 98.3 F 01/06/25 16:07 Pulse 78 01/06/25 16:07 Resp 14 01/06/25 16:07 BP 130/78 01/06/25 16:07 Pulse Ox 98 01/06/25 16:07 Oxygen Delivery Method Room Air 01/06/25 16:07 BMI result Body Mass Index 24.0 Tobacco/Smoking Status: Tobacco use Status Tobacco use date assessed 10/27/23 01/06/25 16:12 Patient Tobacco Use Status Never used Tobacco 01/06/25 16:12 e-Cigarette/Vaping Use Never Used 01/06/25 16:12 PHQ-9: PHQ-9 Score PHQ-9: Total score 2 01/06/25 16:37 Thrive Assessment: Date of Thrive Assessment Date Thrive assessed 01/23/23 01/06/25 16:12 Currently or been in a relationship where the following occur: No concerns reported Const General: no acute distress and well developed Nutritional Appearance: well nourished Orientation/consciousness: patient oriented x3 HENMT Head: Yes normocephalic and Yes atraumatic Eyes General: appearance normal, both eyes and all related structures Pupils: Equal, round and reactive pupils present EOM: EOMs intact bilaterally Resp Effort & Inspection: normal respiratory effort Auscultation: clear to auscultation bilaterally Cardio Rate: regular rate Rhythm: regular rhythm Heart sounds: S1 normal heart sound present, S2 normal heart sound present, no gallops, no murmurs and no rubs Neuro General: patient oriented x3 and gait normal Cranial nerves: Yes Equal, round and reactive pupils present Psych Affect: normal affect Results AMB Hemoglobin A1c AMB Hemoglobin A1c 5.5 % Last Edit by CON Tran on 01/06/25 17:14 Coding Level of Care Code Est Pt Level 4 (12425) Diagnoses Elevated fasting glucose R73.01 Essential hypertension I10 Yeast infection B37.9 Alcohol abuse F10.10 Assessment & Plan Assessment & Plan (1) Elevated fasting glucose: Code(s): R73.01 - Impaired fasting glucose Category: Medical Plan: A1c 5.5%; top?normal?range Encouraged?diet?low?in?sugars?and?starches Will?continue?to?monitor?periodically (2) Essential hypertension: Code(s): I10 - Essential (primary) hypertension Category: Medical Plan: Blood?pressure?is?controlled.??Goal?is?less?than?140/90 Continue?current?medication?regimen Patient?notes?that?he?has?lost?his?carvedilol?prescription. Will?send?a?temporary?script.??May?have?to?pay?[id number]-[id number]?but?he?says?he?can?afford?this. (3) Yeast infection: Code(s): B37.9 - Candidiasis, unspecified Category: Medical Plan: Patient?has?yeast?infection?at?gluteal?cleft?and?anal?region Use?clotrimazole?b.i.d. Wash?twice?a?day?and?change?shorts?twice?a?day. Pat dry well. Avoid?excess?moisture. (4) Alcohol abuse: Code(s): F10.10 - Alcohol abuse, uncomplicated Category: Social Hx Plan: Patient?declines?referral?to?comprehensive?Care?Clinic?but?he?does?take?phone?number. Gave?him?phone?number?and?address.??He?may?call?walk?in Orders: Orders AMB Hemoglobin A1c Today R73.01 - Impaired fasting glucose Comprehensive [place]. Panel Fast Today Z00.00 - Encounter for general adult medical examination without abnormal findings Complete Blood Count Auto Diff Today Z00.00 - Encounter for general adult medical examination without abnormal findings Lipid Panel Today Z00.00 - Encounter for general adult medical examination without abnormal findings Prostate Specific Antigen Scr Today Z12.5 - Encounter for screening for malignant neoplasm of prostate Microalbumin, Random (w Creat) Today I10 - Essential (primary) hypertension TSH reflex Free T4 Today Z00.00 - Encounter for general adult medical examination without abnormal findings UA CC w/rflx Micro + Cult Today Z00.00 - Encounter for general adult medical examination without abnormal findings Medications: New clotrimazole 1% 1 appl topical BID 2 weeks 45 grams 0RF carvedilol Temp Replacement Script. Must administer with a meal/food 6.25 mg PO Q12H 30 days 60 tabs 0RF
[2025-01-06 16:07] VITALS: BP 130/78; PULSE 78; RESP 14; TEMP 36.8; O2SAT 98; BMI 24.0
== END 2025-01-06 17:14 | disposition home or self-care (01) ==
LOC: HO.HMCFM 15:50
PROVIDERS: PCP Family Medicine; Visit Provider Family Medicine
DX: R73.01 Impaired fasting glucose (principal); I10 Essential (primary) hypertension; B37.9 Candidiasis, unspecified; F10.10 Alcohol abuse, uncomplicated

== ENCOUNTER → 2025-01-06 15:49 | Outpatient (BNVA) | payer BC, SELFPAY | PROVIDERS: PCP Family Medicine; Visit Provider Family Medicine | DX: R73.01 Impaired fasting glucose (principal); I10 Essential (primary) hypertension; B37.2 Candidiasis of skin and nail; F10.10 Alcohol abuse, uncomplicated; Z79.899 Other long term (current) drug therapy | CPT/HCPCS: 83036; 96127 ==

== ENCOUNTER 2025-01-10 08:00 | Outpatient (REF) | payer BC, SELFPAY ==
[2025-01-10 11:22] LABS: MANUAL DIFF FLAG NO
[2025-01-10 11:23] LABS: Appearance Urine Clear; Color Urine Yellow; Glucose Urine UA Negative (Negative); Leukocyte Esterase Urine Negative (Negative); Nitrite Urine Negative (Negative); PH 5.5 (5.0-9.0); Specific Gravity - Urine 1.025 (1.005-1.025); Urine Blood Negative (Negative); Urine Ketones Trace mg/dL (Negative); Urine Protein Negative (Neg-Trace)
[2025-01-10 11:28] LABS: Basophils Absolute Auto 0.1 X10*3/uL (0.0-0.2); Basophils Percent Auto 1.6 % (0-2); Eosinophils Absolute Auto 0.3 X10*3/uL (0.0-0.4); Eosinophils Percent Auto 6.1 % (0-4); Hematocrit 41.6 % (42.0-52.0); Hemoglobin 13.9 g/dl (14.0-18.0); Imm Gran Abs Auto 0.01 X10*3/uL (0.00-0.03); Imm Gran Pct Auto 0.2 % (0.0-0.4); Lymphocytes Absolute Auto 1.8 X10*3/uL (1.2-4.9); Lymphocytes Percent Auto 41.3 % (20-40); Mean Corpuscular HGB Conc 33.4 g/dl (31.0-36.0); Mean Corpuscular Hemoglobin 30.7 pg (27.0-33.0); Mean Corpuscular Volume 91.8 fL (80.0-98.0); Mean Platelet Volume 9.9 fL (9.4-12.4); Monocytes Absolute Auto 0.4 X10*3/uL (0.1-1.2); Monocytes Percent Auto 9.8 % (2-11); Neutrophils Absolute Auto 1.8 x10*3/uL (2.0-8.3); Platelet Count 249 X10*3/uL (160-400); Red Blood Count 4.53 X10*6/uL (4.60-5.80); Red Cell Distribution Width 12.2 % (11.0-16.0); White Blood Count 4.4 X10*3/uL (4.8-10.8)
[2025-01-10 11:56] LABS: Prostate Specific Antigen Scr 0.93 ng/mL (<0.05-4.0)
[2025-01-10 12:00] LABS: Creatinine Urine 138.16 mg/dL; Microalbum/Creatinine Ratio Ur 7.2 ug/mg cr (<30)
[2025-01-10 12:58] LABS: Alanine Aminotransferase 35 U/L (0-40); Albumin Level 4.1 g/dL (3.5-5.0); Anion Gap 13 (12-20); Aspartate Amino Transferase 28 U/L (5-37); Bilirubin Total 0.5 mg/dL (0.0-1.0); Blood Urea Nitrogen 12 mg/dL (9-16); Calcium 9.1 mg/dL (8.4-10.2); Carbon Dioxide 26 mmol/L (22-29); Chloride 109 mmol/L (96-108); Cholesterol 202 mg/dL (<200); Estimated Glomerular Filt Rate > 60; Glucose Fasting 111 mg/dL (60-99); HDL Cholesterol 72 mg/dL (>40); LDL Cholesterol Calculated 108 mg/dL (<100); Potassium 4.5 mmol/L (3.3-5.1); Sodium 143 mmol/L (135-145); TSH reflex Free T4 2.08 uIU/mL (0.32-4.0); Triglycerides 114 mg/dL (<150)
[2025-01-10 13:16] LABS: Alkaline Phosphatase 60 U/L (39-117)
== END 2025-01-10 08:01 | disposition home or self-care (01) ==
LOC: HO.WFDLDS 08:00
PROVIDERS: Visit Provider Family Medicine
DX: Z00.00 Encounter for general adult medical examination without abnormal findings (principal); I10 Essential (primary) hypertension; Z12.5 Encounter for screening for malignant neoplasm of prostate
CPT/HCPCS: 36415; 80053; 80061; 81003; 82043; 82570; 84153; 84443; 85025

== ENCOUNTER 2025-01-24 10:32 | Outpatient (AMB) | payer BC, SELFPAY ==
--- NOTE | 2025-01-24 10:30 | A.OFFPC_ITS ---
Intake Visit Reasons: f/u labs via telemedicine Intake Note: patient is sceduled for lab review Laboratory Technologist Required: No Allergies Sulfa (Sulfonamide Antibiotics) Allergy (Mild, Verified 01/24/25 10:30) unknown penicillin G Allergy (Unknown, Verified 01/24/25 10:30) unknown Tobacco use date assessed: 10/27/23 Dental Screening Dental Screen Date: 03/29/24 HPI f/u labs via telemedicine HPI Details 54 y/o male presents to f/u labs via tel emedicine. Labs drawn 01/10/25. Reviewed labs with pt. Mild anemia. Fasting glucose 111. Triglycerides 114. TC 202. LDL 108. HDL 72. PSA 0.93. PFSH Medical History (Updated 01/24/25 @ 10:47 by Claudio Sigala MD) Alcohol abuse Essential hypertension Surgical History Hx of colonoscopy S/P tendon repair Family History Father No problems noted. Mother No problems noted. Sister No problems noted. Daughter No problems noted. 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 Percy Lobmardi, Jenniffer Capps, Omar Cunningahm and colleagues, with an educational dana from [employer] Physical exam (Primary Care) Tobacco/Smoking Status: Tobacco use Status Tobacco use date assessed 10/27/23 01/24/25 10:32 Patient Tobacco Use Status Never used Tobacco 01/24/25 10:32 e-Cigarette/Vaping Use Never Used 01/24/25 10:32 Thrive Assessment: Date of Thrive Assessment Date Thrive assessed 01/23/23 01/24/25 10:32 Telehealth Telehealth Telehealth Platform: Telephone Location of provider rendering services: practice address Location of patient: address on file Patient Identification confirmed using: Name, : Yes Telehealth method: voice only Patient verbally consented to treatment: Yes Patient verbally consented to billing insurance company: Yes Patient informed of any privacy concerns related to visit: Yes Minutes spent on Phone/Video with Pt.: 6 Coding Level of Care Code Tele Est Pt Level 2 (19234) Diagnoses Mild anemia D64.9 Elevated fasting glucose R73.01 Elevated LDL cholesterol level E78.00 Yeast infection of the skin B37.2 Assessment & Plan Assessment & Plan (1) Mild anemia: Code(s): D64.9 - Anemia, unspecified Category: Medical Plan: Mild?anemia. This?may?be?due?to?direct?suppression?from?alcohol?use Will?continue?monitor (2) Elevated fasting glucose: Code(s): R73.01 - Impaired fasting glucose Category: Medical Plan: Recent?A1c?is?at?top?range Encouraged?a?diet?lower?in?sugars?and?starches Will?monitor (3) Elevated LDL cholesterol level: Code(s): E78.00 - Pure hypercholesterolemia, unspecified Category: Medical Plan: LDL?cholesterol?is?slightly?above?goal.??HDL?is?good?and?HDL?ratios?ideal. Encouraged?diet?lower?in?saturated?fats?and?cholesterol (4) Yeast infection of the skin: Code(s): B37.2 - Candidiasis of skin and nail Category: Medical Plan: Patient?used?clotrimazole?and?this ?improved?condition?but?he?stopped?it?after?10?days?and?it?has?not?fully?resolve d. Advised?him?to?use?medications?again?for?another?10-14?days. He?will?call?or?let?me?know?if?this?has?not?fully?resolv ed.??Would?refer?to?dermatology?if?does?not?resolve.
== END 2025-01-24 16:55 | disposition home or self-care (01) ==
LOC: HO.HMCFM 10:32
PROVIDERS: PCP Family Medicine; Visit Provider Family Medicine
DX: D64.9 Anemia, unspecified (principal); R73.01 Impaired fasting glucose; E78.00 Pure hypercholesterolemia, unspecified; B37.2 Candidiasis of skin and nail

== ENCOUNTER → 2025-01-24 10:32 | Outpatient (BNVA) | payer BC, SELFPAY | PROVIDERS: PCP Family Medicine; Visit Provider Family Medicine | DX: Z13.89 Encounter for screening for other disorder (principal) ==

== ENCOUNTER 2025-05-06 16:17 | Outpatient (AMB) | payer BC, SELFPAY ==
--- NOTE | 2025-05-06 16:22 | MHC.PC.OV ---
Vital Signs 05/06/25 16:29 Height 5 ft 5 in Weight 144 lb 2 oz BMI 24.0 BP 130/80 Blood Pressure Location Rt brachial Position Sitting Respiration 12 Pulse 71 Pulse Source Pulse Oximeter Temp 98.6 F Temp Source Oral Pulse Oximetry (%) 98 Oxygen Delivery Method Room Air Intake Visit Reasons: abdomen pain Intake Note: patient is scheduled to discuss a possible tick/or mole patient would like to get this checked out Valet Runner Required: No Allergies Sulfa (Sulfonamide Antibiotics) Allergy (Mild, Verified 05/06/25 16:24) unknown penicillin G Allergy (Unknown, Verified 05/06/25 16:24) unknown Tobacco use date assessed: 10/27/23 Dental Screening Dental Screen Date: 03/29/24 HPI abdomen pain HPI Details 55 y/o male presents today with complaints of abd. pain. BP today 130/80, 71p. Pt notes ? tick bite. Had first noticed it a few days ago Friday. BP today 130/80, 71p. He is on amlodipine 5mg b.i.d, carvedilol 6.25mg b.i.d. [facility] Medical History (Updated 01/24/25 @ 10:47 by Claudio Sigala MD) Alcohol abuse Essential hypertension Surgical History Hx of colonoscopy S/P tendon repair Family History Father No problems noted. Mother No problems noted. Sister No problems noted. Daughter No problems noted. 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 Current occupational exposures/hazards: No Cognitive needs: No Hearing needs: No Vision needs: No Questionnaire Thrive Questionnaire Date Thrive assessed: 01/06/25 I am a: Patient What is your living situation today?: I have a steady place to live Within the past 12 months, did the food you bought not last and you didn't have the money to get more?: Never true Within the past 12 months, did you worry whether your food would run out before you got money to buy more?: Never true Do you have trouble paying for medicines?: No Do you have trouble getting transportation to medical appointments?: No Do you have trouble paying your heating and electricity bill?: No Do you have trouble taking care of your child, family member or friend?: No Do you have trouble with day-to-day activities such as bathing, preparing meals, shopping, managing finances, etc.?: No Are you currently unemployed and looking for a job?: No Are you interested in more education?: No Please select the resources that you would like help with: None Currently or been in a relationship where the following occur: No concerns reported THRIVE Score: 0 DEVIKA-7 AMB Questionnaire DEVIKA-7 Date DEVIKA - 7 assessed: 01/23/23 Source: Developed by Drs. Percy Lombardi, Jenniffer Capps, Omar Cunningham and colleagues, with an educational dana from [employer]. Review of Systems Const Denies chills, Denies fatigue, Denies fever(s), Denies headache(s) and Denies weakness ENT Denies dizziness and Denies headache(s) Card Denies dyspnea Resp Denies cough, Denies dyspnea, Denies wheezing and Denies other (shortness of breath) Musc Denies numbness and Denies tingling Neuro Denies dizziness, Denies headache(s), Denies numbness, Denies tingling and Denies weakness Psych Denies anxiety and Denies depression Endo Denies fatigue Aller/Immun Denies wheezing Physical exam (Primary Care) Vital Signs: Last Vital Signs Temp 98.6 F 05/06/25 16:29 Pulse 71 05/06/25 16:29 Resp 12 05/06/25 16:29 BP 130/80 05/06/25 16:29 Pulse Ox 98 05/06/25 16:29 Oxygen Delivery Method Room Air 05/06/25 16:29 BMI result Body Mass Index 24.0 Tobacco/Smoking Status: Tobacco use Status Tobacco use date assessed 10/27/23 05/06/25 16:26 Patient Tobacco Use Status Never used Tobacco 05/06/25 16:26 e-Cigarette/Vaping Use Never Used 05/06/25 16:26 Thrive Assessment: Date of Thrive Assessment Date Thrive assessed 01/06/25 05/06/25 16:26 Currently or been in a relationship where the following occur: No concerns reported Const General: well developed; No acute distress Nutritional Appearance: well nourished Orientation/consciousness: patient oriented x3 HENMT Head: Yes normocephalic and Yes atraumatic Eyes General: appearance normal, both eyes and all related structures Pupils: Equal, round and reactive pupils present EOM: EOMs intact bilaterally Resp Effort & Inspection: normal respiratory effort Neuro General: patient oriented x3 and gait normal Cranial nerves: Yes Equal, round and reactive pupils present Psych Affect: normal affect Coding Level of Care Code Est Pt Level 3 (09201) Diagnoses Tick bite W57.XXXA Essential hypertension I10 Assessment & Plan Assessment & Plan (1) Tick bite: Code(s): W57.XXXA - Bitten or stung by nonvenomous insect and other nonvenomous arthropods, initial encounter Category: Medical Plan: Likely tick bite on patient's abdomen. Will give him a prophylactic dose of doxycycline Will check Lyme titer No erythema migrans rash - mild local reaction and he can let skin push any mouth parts out spontaneously. (2) Essential hypertension: Code(s): I10 - Essential (primary) hypertension Category: Medical Plan: Blood pressure is controlled. Goal is less than 140/90 Continue current medication Orders: Orders Lyme IgG/IgM w/reflex to WB Today W57.XXXA - Bitten or stung by nonvenomous insect and other nonvenomous arthropods, initial encounter Medications: New doxycycline hyclate 200 mg (2 x 100 mg) PO ONCE 2 tabs 0RF 1 day Changed From amlodipine 5 mg PO BID 90 days 180 tabs 1RF To amlodipine 5 mg (1/2 x 10 mg) PO BID 90 tabs 1RF 90 days
[2025-05-06 16:29] VITALS: BP 130/80; PULSE 71; RESP 12; TEMP 37; O2SAT 98; BMI 24.0
== END 2025-05-06 16:54 | disposition home or self-care (01) ==
LOC: HO.HMCFM 16:18
PROVIDERS: PCP Family Medicine; Visit Provider Family Medicine
DX: T63.481A Toxic effect of venom of other arthropod, accidental (unintentional), initial encounter (principal); I10 Essential (primary) hypertension

== ENCOUNTER 2025-05-09 08:27 | Outpatient (REF) | payer BC, SELFPAY ==
[2025-05-09 12:07] LABS: Cholesterol 226 mg/dL (<200); HDL Cholesterol 81 mg/dL (>40); Triglycerides 74 mg/dL (<150)
[2025-05-11 03:47] LABS: Lyme Abs Screen <0.90 index
== END 2025-05-09 08:28 | disposition home or self-care (01) ==
LOC: HO.WFDLDS 08:27
PROVIDERS: Visit Provider Family Medicine
DX: Z00.00 Encounter for general adult medical examination without abnormal findings (principal); W57.XXXA Bitten or stung by nonvenomous insect and other nonvenomous arthropods, initial encounter; Z13.220 Encounter for screening for lipoid disorders
CPT/HCPCS: 36415; 80061; 86617; 86618

== ENCOUNTER 2025-06-13 14:31 | Outpatient (AMB) | payer BC, SELFPAY ==
[2025-06-13 14:46] VITALS: BP 140/82; PULSE 69; O2SAT 99; BMI 24.0
--- NOTE | 2025-06-13 14:46 | MHC.PC.OV ---
Vital Signs 06/13/25 14:46 Height 5 ft 5 in Weight 144 lb 8 oz BMI 24.0 BP 140/82 H Blood Pressure Location Rt brachial Position Sitting Pulse 69 Pulse Source Pulse Oximeter Pulse Oximetry (%) 99 Oxygen Delivery Method Room Air Intake Visit Reasons: f/u HTN Allergies Sulfa (Sulfonamide Antibiotics) Allergy (Mild, Verified 06/13/25 14:50) unknown penicillin G Allergy (Unknown, Verified 06/13/25 14:50) unknown Tobacco use date assessed: 06/13/25 Dental Screening Dental Screen Date: 06/13/25 Did you have a dental visit in the last 12 months?: Yes Did you have a dental problem in the last 6 months where you did not have access to dental care?: No Was dental information given to patient?: Patient has dentist HPI f/u HTN HPI Details 55 y/o male presents to f/u HTN. BP today 140/82, 69p. He is on amlodipine 5mg b.i.d, carvedilol 6.25mg b.i.d. Labs drawn 05/09/25. Reviewed labs with pt. Triglycerides 74. TC 226. LDL 131. HDL 81. PFSH Medical History Alcohol abuse Essential hypertension Surgical History Hx of colonoscopy S/P tendon repair Family History Father No problems noted. Mother No problems noted. Sister No problems noted. Daughter No problems noted. 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 1. Little interest or pleasure in doing things: not at all 2. Feeling down, depressed, or hopeless: not at all 3. Trouble falling or staying asleep, or sleeping too much: several days 4. Feeling tired or having little energy: several days 5. Poor appetite or overeating: not at all 6. Feeling bad about yourself - or that you are a failure or have let yourself or your family down: not at all 7. Trouble concentrating on things, such as reading the newspaper or watching television: not at all 8. Moving or speaking so slowly that other people could have noticed. Or the opposite - being so fidgety or restless that you have been moving around a lot more than usual: not at all 9. Thoughts that you would be better off or of hurting yourself in some way: not at all Total score: 2 Source: Developed by Drs. Percy Lombardi, Jenniffer Capps, Omar Cunningham and colleagues, with an educational dana from [email or web address]. Thrive Questionnaire Date Thrive assessed: 01/06/25 I am a: Patient What is your living situation today?: I have a steady place to live Within the past 12 months, did the food you bought not last and you didn't have the money to get more?: Never true Within the past 12 months, did you worry whether your food would run out before you got money to buy more?: Never true Do you have trouble paying for medicines?: No Do you have trouble getting transportation to medical appointments?: No Do you have trouble paying your heating and electricity bill?: No Do you have trouble taking care of your child, family member or friend?: No Do you have trouble with day-to-day activities such as bathing, preparing meals, shopping, managing finances, etc.?: No Are you currently unemployed and looking for a job?: No Are you interested in more education?: No Please select the resources that you would like help with: None Currently or been in a relationship where the following occur: No concerns reported THRIVE Score: 0 AUDIT C Alcohol Use Questionnaire (AUDIT-C) 1. How often do you have a drink containing alcohol?: 4 or more times a week 2. How many drinks containing alcohol do you have on a typical day when you are drinking?: 3 or 4 3. How often do you have six or more drinks on one occasion?: Less than monthly Total Score: 6 DEVIKA-7 AMB Questionnaire DEVIKA-7 Date DEVIKA - 7 assessed: 01/06/25 Feeling nervous, anxious, or on edge: 0 = Not at all Not being able to stop or control worryin = Not at all Worrying too much about different things: 1 = Several days Trouble relaxin = Not at all Being so restless that it is hard to sit still: 0 = Not at all Becoming easily annoyed or irritable: 1 = Several days Feeling afraid as if something awful might happen: 1 = Several days Total DEVIKA-7 score (0-4 normal; 5-9 mild; 10-14 moderate; 15-21 severe): 3 Source: Developed by Drs. Percy Lombardi, Jenniffer Capps, Omar Cunningham and colleagues, with an educational dana from [email or web address]. Review of Systems Const Denies chills, Denies fatigue, Denies fever(s), Denies headache(s) and Denies weakness ENT Denies dizziness and Denies headache(s) Card Denies dyspnea Resp Denies cough, Denies dyspnea, Denies wheezing and Denies other (shortness of breath) Musc Denies numbness and Denies tingling Neuro Denies dizziness, Denies headache(s), Denies numbness, Denies tingling and Denies weakness Psych Denies anxiety and Denies depression Endo Denies fatigue Aller/Immun Denies wheezing Physical exam (Primary Care) Vital Signs: Last Vital Signs Pulse 69 06/13/25 14:46 BP 140/82 H 06/13/25 14:46 Pulse Ox 99 06/13/25 14:46 Oxygen Delivery Method Room Air 06/13/25 14:46 BMI result Body Mass Index 24.0 Tobacco/Smoking Status: Tobacco use Status Tobacco use date assessed 06/13/25 06/13/25 14:52 Patient Tobacco Use Status Never used Tobacco 06/13/25 14:52 e-Cigarette/Vaping Use Never Used 06/13/25 14:52 PHQ-9: PHQ-9 Score PHQ-9: Total score 2 06/13/25 15:00 Thrive Assessment: Date of Thrive Assessment Date Thrive assessed 01/06/25 06/13/25 14:52 Currently or been in a relationship where the following occur: No concerns reported Const General: well developed; No acute distress Nutritional Appearance: well nourished Orientation/consciousness: patient oriented x3 HENMT Head: Yes normocephalic and Yes atraumatic Eyes General: appearance normal, both eyes and all related structures Pupils: Equal, round and reactive pupils present EOM: EOMs intact bilaterally Resp Effort & Inspection: normal respiratory effort Neuro General: patient oriented x3 and gait normal Cranial nerves: Yes Equal, round and reactive pupils present Psych Affect: normal affect Coding Level of Care Code Est Pt Level 4 (56804) Diagnoses Essential hypertension I10 Hyperlipidemia E78.5 Mild anemia D64.9 Assessment & Plan Assessment & Plan (1) Essential hypertension: Code(s): I10 - Essential (primary) hypertension Category: Medical Plan: Blood pressure is a little high today though was well controlled at last visit Goal is less than 140/90 (2) Hyperlipidemia: Code(s): E78.5 - Hyperlipidemia, unspecified Category: Medical Plan: LDL cholesterol has climbed and is well above 100 Encouraged a diet lower in saturated fats and cholesterol Will recheck lipids in a few months. If still significantly elevated, will start medication (3) Mild anemia: Code(s): D64.9 - Anemia, unspecified Category: Medical Plan: Very mild anemia. Patient was somewhat concerned about this We can recheck with next blood draw Plan Also, patient had Lyme titer drawn and these were negative He was treated with prophylactic doxycycline for tick bite No further treatment necessary Orders: Orders Basic Metabolic Panel Today E78.5 - Hyperlipidemia, unspecified, Z00.00 - Encounter for general adult medical examination without abnormal findings Complete Blood Count Auto Diff Today D64.9 - Anemia, unspecified, Z00.00 - Encounter for general adult medical examination without abnormal findings IRON PROFILE Today D64.9 - Anemia, unspecified Reticulocyte Count Today D64.9 - Anemia, unspecified Lipid Panel Today E78.5 - Hyperlipidemia, unspecified, Z00.00 - Encounter for general adult medical examination without abnormal findings Vitamin B12 and Folate Today D64.9 - Anemia, unspecified, E53.8 - Deficiency of other specified B group vitamins Ferritin Today D64.9 - Anemia, unspecified
== END 2025-06-13 15:13 | disposition home or self-care (01) ==
LOC: HO.HMCFM 14:32
PROVIDERS: PCP Family Medicine; Visit Provider Family Medicine
DX: I10 Essential (primary) hypertension (principal); E78.5 Hyperlipidemia, unspecified; D64.9 Anemia, unspecified

== ENCOUNTER 2025-09-12 07:46 | Outpatient (REF) | payer BC, SELFPAY ==
[2025-09-12 11:28] LABS: MANUAL DIFF FLAG NO
[2025-09-12 11:49] LABS: Hematocrit 43.2 % (42.0-52.0); Hemoglobin 14.3 g/dl (14.0-18.0); Imm Gran Abs Auto 0.02 X10*3/uL (0.00-0.03); Imm Gran Pct Auto 0.3 % (0.0-0.4); Lymphocytes Absolute Auto 2.2 X10*3/uL (1.2-4.9); Mean Corpuscular HGB Conc 33.1 g/dl (31.0-36.0); Mean Corpuscular Hemoglobin 30.0 pg (27.0-33.0); Mean Corpuscular Volume 90.6 fL (80.0-98.0); NRBC Abs Auto 0.000 X10*3/uL (0.0-0.012); NRBC Pct Auto 0.0 /100WBC (0.0-0.2); Platelet Count 260 X10*3/uL (160-400); Red Blood Count 4.77 X10*6/uL (4.60-5.80); Reticulocytes Absolute 0.093 X10*6/uL (0.026-0.095); White Blood Count 6.6 X10*3/uL (4.8-10.8)
[2025-09-12 12:18] LABS: Anion Gap 10 (12-20); Blood Urea Nitrogen 16 mg/dL (9-16); Calcium 9.2 mg/dL (8.4-10.2); Carbon Dioxide 28 mmol/L (22-29); Chloride 108 mmol/L (96-108); Cholesterol 217 mg/dL (<200); Estimated Glomerular Filt Rate > 60; HDL Cholesterol 85 mg/dL (>40); Iron 87 mcg/dL (45-160); Percent Iron Saturation 35 % (15-50); Potassium 4.6 mmol/L (3.3-5.1); Sodium 141 mmol/L (135-145); Total Iron Binding Capacity 252 mcg/dL (228-428); Triglycerides 56 mg/dL (<150); Unsaturated Iron Binding 165 ug/dL
[2025-09-12 12:19] LABS: Ferritin 150 ng/mL (20-250)
[2025-09-12 14:10] LABS: Folate 9.1 ng/mL (> or = 4.0); Vitamin B12 331 pg/mL (200-900)
== END 2025-09-12 07:47 | disposition home or self-care (01) ==
LOC: HO.WFDLDS 07:46
PROVIDERS: Visit Provider Family Medicine
DX: Z00.00 Encounter for general adult medical examination without abnormal findings (principal); E53.8 Deficiency of other specified B group vitamins; D64.9 Anemia, unspecified; E78.5 Hyperlipidemia, unspecified
CPT/HCPCS: 36415; 80048; 80061; 82607; 82728; 82746; 83540; 85025; 85045

== ENCOUNTER 2025-09-19 11:19 | Outpatient (AMB) | payer BC, SELFPAY ==
--- NOTE | 2025-09-19 11:22 | MHC.PC.OV ---
Vital Signs 09/19/25 11:24 Height 5 ft 5 in Weight 146 lb BMI 24.3 BP 136/86 Blood Pressure Location Rt brachial Position Sitting Pulse 62 Pulse Source Pulse Oximeter Pulse Oximetry (%) 100 Oxygen Delivery Method Room Air Intake Visit Reasons: f/u HLD - see comments Allergies Sulfa (Sulfonamide Antibiotics) Allergy (Mild, Verified 09/19/25 11:24) unknown penicillin G Allergy (Unknown, Verified 09/19/25 11:24) unknown Medication List - Last Reconciled 09/19/25 by Claudio Sigala MD amlodipine 5 mg (1/2 x 10 mg) PO BID 90 days carvedilol 6.25 mg PO BID 90 days Tobacco use date assessed: 09/19/25 Dental Screening Dental Screen Date: 09/19/25 Did you have a dental visit in the last 12 months?: Yes Did you have a dental problem in the last 6 months where you did not have access to dental care?: No Was dental information given to patient?: Patient has dentist HPI f/u HLD - see comments HPI Details 55 y/o male presents to f/u HTN, lipids, labs. Labs drawn 09/12/25. Reviewed labs with pt. Mild anemia resolved. Triglycerides 56. TC 217. LDL 121. HDL 85. He is on Zetia 10mg daily. Blood pressure today 136/86, 62p. He is on amlodipine 5mg b.i.d. Complaints of R flank pain associated with bowel movements. [facility] Medical History Alcohol abuse Essential hypertension Surgical History Hx of colonoscopy S/P tendon repair Family History Father No problems noted. Mother No problems noted. Sister No problems noted. Daughter No problems noted. 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 1. Little interest or pleasure in doing things: not at all 2. Feeling down, depressed, or hopeless: not at all 3. Trouble falling or staying asleep, or sleeping too much: several days 4. Feeling tired or having little energy: several days 5. Poor appetite or overeating: not at all 6. Feeling bad about yourself - or that you are a failure or have let yourself or your family down: not at all 7. Trouble concentrating on things, such as reading the newspaper or watching television: not at all 8. Moving or speaking so slowly that other people could have noticed. Or the opposite - being so fidgety or restless that you have been moving around a lot more than usual: not at all 9. Thoughts that you would be better off or of hurting yourself in some way: not at all Total score: 2 Source: Developed by Drs. Percy Lombardi, Jenniffer Capps, Omar Cunningham and colleagues, with an educational dana from [employer]. Thrive Questionnaire Date Thrive assessed: 01/06/25 I am a: Patient What is your living situation today?: I have a steady place to live Within the past 12 months, did the food you bought not last and you didn't have the money to get more?: Never true Within the past 12 months, did you worry whether your food would run out before you got money to buy more?: Never true Do you have trouble paying for medicines?: No Do you have trouble getting transportation to medical appointments?: No Do you have trouble paying your heating and electricity bill?: No Do you have trouble taking care of your child, family member or friend?: No Do you have trouble with day-to-day activities such as bathing, preparing meals, shopping, managing finances, etc.?: No Are you currently unemployed and looking for a job?: No Are you interested in more education?: No Please select the resources that you would like help with: None Currently or been in a relationship where the following occur: No concerns reported THRIVE Score: 0 AUDIT C Alcohol Use Questionnaire (AUDIT-C) 1. How often do you have a drink containing alcohol?: 4 or more times a week 2. How many drinks containing alcohol do you have on a typical day when you are drinking?: 3 or 4 3. How often do you have six or more drinks on one occasion?: Less than monthly Total Score: 6 DEVIKA-7 AMB Questionnaire DEVIKA-7 Date DEVIKA - 7 assessed: 01/06/25 Feeling nervous, anxious, or on edge: 0 = Not at all Not being able to stop or control worryin = Not at all Worrying too much about different things: 1 = Several days Trouble relaxin = Not at all Being so restless that it is hard to sit still: 0 = Not at all Becoming easily annoyed or irritable: 1 = Several days Feeling afraid as if something awful might happen: 1 = Several days Total DEVIKA-7 score (0-4 normal; 5-9 mild; 10-14 moderate; 15-21 severe): 3 Source: Developed by Drs. Percy Lombardi, Jenniffer Capps, Omar Cunningham and colleagues, with an educational dana from [employer]. Review of Systems Const Denies chills, Denies fatigue, Denies fever(s), Denies headache(s) and Denies weakness ENT Denies dizziness and Denies headache(s) Card Denies dyspnea Resp Denies cough, Denies dyspnea, Denies wheezing and Denies other (shortness of breath) Musc Denies numbness and Denies tingling Neuro Denies dizziness, Denies headache(s), Denies numbness, Denies tingling and Denies weakness Psych Denies anxiety and Denies depression Endo Denies fatigue Aller/Immun Denies wheezing Physical exam (Primary Care) Vital Signs: Last Vital Signs Pulse 62 09/19/25 11:24 BP 136/86 09/19/25 11:24 Pulse Ox 100 09/19/25 11:24 Oxygen Delivery Method Room Air 09/19/25 11:24 BMI result Body Mass Index 24.3 Tobacco/Smoking Status: Tobacco use Status Tobacco use date assessed 09/19/25 09/19/25 11:26 Patient Tobacco Use Status Never used Tobacco 09/19/25 11:23 e-Cigarette/Vaping Use Never Used 09/19/25 11:23 PHQ-9: PHQ-9 Score PHQ-9: Total score 2 09/19/25 11:31 Thrive Assessment: Date of Thrive Assessment Date Thrive assessed 01/06/25 09/19/25 11:23 Currently or been in a relationship where the following occur: No concerns reported Const General: well developed; No acute distress Nutritional Appearance: well nourished Orientation/consciousness: patient oriented x3 HENMT Head: Yes normocephalic and Yes atraumatic Eyes General: appearance normal, both eyes and all related structures Pupils: Equal, round and reactive pupils present EOM: EOMs intact bilaterally Resp Effort & Inspection: normal respiratory effort Auscultation: clear to auscultation bilaterally Cardio Rate: regular rate Rhythm: regular rhythm Heart sounds: S1 normal heart sound present, S2 normal heart sound present, no gallops, no murmurs and no rubs Neuro General: patient oriented x3 and gait normal Cranial nerves: Yes Equal, round and reactive pupils present Psych Affect: normal affect Coding Level of Care Code Est Pt Level 4 (40665) Diagnoses Essential hypertension I10 Hyperlipidemia E78.5 Mild anemia D64.9 Right flank pain R10.A1 Assessment & Plan Assessment & Plan (1) Essential hypertension: Code(s): I10 - Essential (primary) hypertension Category: Medical Plan: Blood pressure is controlled. Goal is less than 140/90 Continue current medication Watch salt and sodium in diet Encouraged exercise and weight control (2) Hyperlipidemia: Code(s): E78.5 - Hyperlipidemia, unspecified Category: Medical Plan: LDL cholesterol is improved but still above goal of less than 100 Start Zetia Will recheck lipids prior to next visit (3) Mild anemia: Code(s): D64.9 - Anemia, unspecified Category: Medical Plan: This has resolved (4) Right flank pain: Code(s): R10.A1 - Flank pain, right side Category: Medical Plan: Right flank pain associated with bowel movements Labs are unremarkable; normal liver enzymes and bilirubin. Kidney function normal. No significant abdominal tenderness on exam. No rebound tenderness. CVA TTP. He is drinking only about 24 onto the water per day. Increase water intake to 64 oz daily. Increase soluble fiber diet He will let me know if this is not improving or worsens. Orders: Orders Comprehensive [place]. Panel Fast Today Z00.00 - Encounter for general adult medical examination without abnormal findings Lipid Panel Today E78.00 - Pure hypercholesterolemia, unspecified, Z00.00 - Encounter for general adult medical examination without abnormal findings Medications: New ezetimibe (Zetia) 10 mg PO DAILY 90 tabs 3RF 90 days
[2025-09-19 11:24] VITALS: BP 136/86; PULSE 62; O2SAT 100; BMI 24.3
== END 2025-09-19 11:42 | disposition home or self-care (01) ==
LOC: HO.HMCFM 11:20
PROVIDERS: PCP Family Medicine; Visit Provider Family Medicine
DX: I10 Essential (primary) hypertension (principal); E78.5 Hyperlipidemia, unspecified; D64.9 Anemia, unspecified; R10.A1 Flank pain, right side